=== PATIENT | male | born 1950 | race Caucasian/White ===

== ENCOUNTER 2016-05-29 08:02 | Day surgery (SDC) | payer OTHER, BC ==
[2016-04-25 08:56] VITALS: BMI 32.0
--- NOTE | 2016-04-25 09:43 | PAT Medication Instructions ---
Service Date Apr 25, 2016. Current Home Medication List Rapides (Rapides), Unknown Dose PO BID Amlodipine Besylate (Norvasc), 5 MG PO QAM Amoxicillin (Amoxil), 2,000 MG PO UD PRN for Prior to appointment Ascorbic Acid (Vitamin C), 500 MG PO QAM Cetirizine Hcl (Zyrtec), 10 MG PO QPM Dextromethorphan-Guaifenesin (Mucinex Dm), 1-2 TABLETS PO BID PRN for Cough Diphenhydramine Hcl (Benadryl Allergy), 1 TAB PO Q6 Fluticasone Propionate (Flonase Nasal [place]), 2 SPRAYS MELANIE QAM Lorazepam (Ativan), 0.5 MG PO Q12 PRN for PRN Losartan Potassium (Cozaar), 100 MG PO QAM Metoprolol Succinate (Toprol Xl), 100 MG PO QAM Multiple Vitamin (Multivitamin), 1 TABLET PO QAM Omeprazole (Prilosec), 20 MG PO QAM Medication Instructions For Your Scheduled Surgery - Hold the following medications as of 04/25/16: Rapides (Rapides), Unknown Dose PO BID - Hold the following medications the morning of surgery: Losartan Potassium (Cozaar), 100 MG PO QAM Multiple Vitamin (Multivitamin), 1 TABLET PO QAM Ascorbic Acid (Vitamin C), 500 MG PO QAM Diphenhydramine Hcl (Benadryl Allergy), 1 TAB PO Q6 Dextromethorphan-Guaifenesin (Mucinex Dm), 1-2 TABLETS PO BID PRN for Cough - Take the following medications the morning of surgery with a sip of water OTHERWISE NOTHING TO EAT OR DRINK AFTER MIDNIGHT: Metoprolol Succinate (Toprol Xl), 100 MG PO QAM Omeprazole (Prilosec), 20 MG PO QAM Amlodipine Besylate (Norvasc), 5 MG PO QAM Lorazepam (Ativan), 0.5 MG PO Q12 PRN - Take the following medications as scheduled the night before surgery: Lorazepam (Ativan), 0.5 MG PO Q12 PRN Cetirizine Hcl (Zyrtec), 10 MG PO QPM Diphenhydramine Hcl (Benadryl Allergy), 1 TAB PO Q6 Dextromethorphan-Guaifenesin (Mucinex Dm), 1-2 TABLETS PO BID PRN for Cough If you have any questions please call us at [phone] (Hermila Faulkner PA-C) or [phone] or [phone]
--- NOTE | 2016-04-25 10:00 | DIAGNOSTIC IMAGING REPORT ---
CHEST 2 VIEWS ROUTINE CLINICAL HISTORY: pat preoperative evaluation COMPARISON STUDY: No previous studies for comparison. FINDINGS: Minimal platelike atelectasis left base. Lungs otherwise are clear. Diaphragms smooth. IMPRESSION: Minimal platelike atelectasis left base. Otherwise negative study Electronically signed by: Sam Chery M.D. 04/25/2016 9:58 AM
[2016-04-25 10:37] LABS: BASO % 0.5 %; BASO ABS # 0.04 K/uL (0-0.2); COMPLETE YES; HEMATOCRIT 43.8 % (42-52); IG% 0.3 %; LYMPH % 22.9 %; LYMPH ABS # 1.76 K/uL (1.2-3.4); MEAN CELL VOLUME 91.3 fL (80-100); MEAN CORPUSCULAR HEMOGLOBIN 30.8 pg (25-34); MEAN CORPUSCULAR HGB CONC 33.8 g/dl (32-36); MEAN PLATELET VOLUME 8.9 fL (7.4-10.4); MONO % 9.9 %; NEUT % 57.4 %; PLATELET COUNT 241 K/uL (130-400); WHITE BLOOD COUNT 7.69 K/uL (4.8-10.8)
[2016-04-25 11:17] LABS: BUN/CREATININE RATIO 18.5 (10-20); CALCIUM 9.2 mg/dl (8.5-10.1); CREATININE 0.9 mg/dl (0.60-1.40); POTASSIUM 4.4 mmol/L (3.5-5.1)
[~2016-05-29] VITALS: Ht 185.4 cm; Wt 110.0 kg
[2016-05-29] VITALS (9 sets, daily range): BP systolic 110–144; BP diastolic 69–84; PULSE 62–89; TEMP 36.4–36.6; O2SAT 91–96; Ht 185.4 cm; Wt 110.0 kg
[~2016-05-29 08:02] MED LIST: ALFA250T PO; AMLO5TAB4 PO; AMOX500C3 PO; ASCO500T3 PO; CETI10TA10 PO; DEXT30TA7 PO; DIPH1TAB PO; FLNIN NAE; LACTATED RINGER'S 1000ML 1,000 ML IV SCH; LACTATED RINGER'S 1000ML IV SCH; LORA-741 PO; LOSA1TAB38 PO; METO100T7 PO; MULTTAB58 PO; OMEP20CA9 PO
[2016-05-29] MEDS ORDERED: NEOSTIGMINE METHYLSULFATE 5 MG/5 ML SYR ONE (08:59)
[2016-05-29] MEDS ORDERED: FENTANYL CITRATE INJ 50 MCG/1 ML 2 ML VIAL ONE ×2 (08:59→10:37)
[2016-05-29] MEDS ORDERED: EpHEDrine SULFATE INJ 50 MG/ML AMP ONE (08:59)
[2016-05-29] MEDS ORDERED: MIDAZOLAM HCL 1 MG/ML 2ML VIAL ONE (08:59)
[2016-05-29] MEDS ORDERED: ROCURONIUM BROMIDE 10 MG/ML 5 ML VIAL ONE (08:59)
[2016-05-29] MEDS ORDERED: DEXAMETHASONE SOD INJ 4 MG/ML VIAL ONE (08:59)
[2016-05-29] MEDS ORDERED: GLYCOPYRROLATE INJ 0.2 MG/ML VIAL ONE ×2 (08:59→10:56)
[2016-05-29] MEDS ORDERED: ONDANSETRON INJ 2 MG/ML 2 ML VIAL ONE (08:59)
[2016-05-29] MEDS ORDERED: PHENYLEPHRINE HCL INJ 10 MG/ML VIAL ONE (08:59)
[2016-05-29] MEDS ORDERED: SUCCINYLCHOLINE CHLORIDE 20 MG/ML 10 ML VIAL IV ONE (08:59)
[2016-05-29] MEDS ORDERED: PROPOFOL IV EMULSION 10 MG/ML 20 ML VIAL IV ONE (08:59)
[2016-05-29] MEDS ORDERED: LIDOCAINE HCL 2% 2 ML VIAL (20MG/ML) ONE (08:59)
[2016-05-29] MEDS ORDERED: LACTATED RINGER'S 1000ML 1,000 ML IV PRN (09:01)
[2016-05-29] MEDS ORDERED: ONDANSETRON INJ 2 MG/ML 2 ML VIAL IV PRN ×4 (09:15→17:30)
[2016-05-29] MEDS ORDERED: KETOROLAC TROMETHAMINE 15 MG/ML VIAL IV. PRN (09:15)
--- NOTE | 2016-05-29 09:32 | History & Physical Bridge Note ---
H&P Re-Evaluation Bridge Note: I have examined the patient, reviewed the History & Physical and in the interval since the performance of the History & Physical I have noted the following changes of clinical significance: No changes notedSO at bedside will discuss antibiotic coverage with anesthesia
[2016-05-29] MEDS ORDERED: OXYC-57 PO (09:38)
--- NOTE | 2016-05-29 09:42 | Discharge Instructions ---
Discharge Instructions Visit Reason for Visit: Cholelithiaisis Discharge Discharge Diagnosis / Problem: Laparoscopic cholecystectomy Discharge Goals Goal(s): Decrease discomfort Activity Recommendations Activity Limitations: per Instructions/Follow-up section Lifting Limitations: no more than 10 pounds Shower/Bathe: tomorrow Driving or Machine Use: resume 3 days after discharge Anesthesia . Post Anesthesia Instructions: If you have had General Anesthesia or IV Sedation: * Do not drive today. * Resume driving when surgeon permits. * Do not make important decisions or sign legal documents today. * Call surgeon for: 1. Temperature elevations greater than 101 degrees F. 2. Uncontrollable pain. 3. Excessive bleeding. 4. Persistent nausea and vomiting. 5. Medication intolerance (nausea, vomiting or rash). * For nausea and vomiting use only clear liquids such as: tea, soda, bouillon until nausea subsides, then gradually increase diet as tolerated. * If you have any concerns or questions, call your surgeon's office. If physician is unavailable and it is an emergency, call 911 or go to the nearest emergency room. . Instructions / Follow-Up Instructions / Follow-Up Dr. Lima next week, call [phone] if you do not already have an appt, tell them you have drain to be removed on Thursday Empty FLORENCIO 2-3 times daily, record total daily drainage Diet Recommendations Recommended Home Diet: no limitations Pending Studies Studies pending at discharge: no Medical Emergencies . Who to Call and When: Medical Emergencies: If at any time you feel your situation is an emergency, please call 911 immediately. . Non-Emergent Contact Non-Emergency issues call your: Surgeon Call Non-Emergent contact if: you have a fever, temperature is above 101.5, your pain is not controlled, wound has increased pain . . "Provider Documentation" section prepared by Kodak Braxton.
[2016-05-29] MEDS ORDERED: METOCLOPRAMIDE HCL INJ 5 MG/ML 2 ML VIAL ONE (09:49)
[2016-05-29] MEDS ORDERED: PHENYLEPHRINE 100MCG/ML 5ML SYR ONE (10:30)
[2016-05-29] MEDS ORDERED: EpHEDrine SULFATE 50MG/5ML SYR ONE (10:41)
[2016-05-29] MEDS ORDERED: CONRAY 60% 50 ML VIAL INSTIL ONE (10:52)
[2016-05-29] MEDS ORDERED: LIDOCAINE/EPINEPHRINE 1% 20 ML VIAL INJ ONE (10:52)
--- NOTE | 2016-05-29 11:12 | DIAGNOSTIC IMAGING REPORT ---
INTRAOPERATIVE RADIOGRAPHS CLINICAL HISTORY: Left scalp cholecystectomy. Fluoroscopy time: 5 seconds. FINDINGS: 4 spot fluoroscopic views of the right upper quadrant from an intraoperative cholangiogram are presented. The gallbladder is surgically absent. The common bile duct appears mildly dilated. A filling defect is seen in the distal common bile duct which may represent an obstructing gallstone. There is passage of contrast into the duodenum. The intrahepatic ducts appear normal in caliber. IMPRESSION: There is a filling defect identified in the distal common bile duct, likely represent choledocholithiasis. Correlation with the operative findings will be required. Electronically signed by: Efrain Velasquez M.D. 05/29/2016 11:11 AM Dictated Date/Time: 05/29/2016 11:10 AM
[2016-05-29] MEDS ORDERED: LACTATED RINGER'S 1000ML 1,000 ML IV SCH ×3 (11:22→17:20)
--- NOTE | 2016-05-29 11:28 | [facility] Post Operative Brief Note ---
Immediate Operative Summary Operative Date May 29, 2016. Pre-Operative Diagnosis Symptomatic cholelithiasis Post-Operative Diagnosis Same [facility] Procedure(s) Performed Laparoscopic Cholecystectomy with Cholangiogram Surgeon Dr Lima Multimedia Designer Surgeon(s) Kodak Braxton PA-C Estimated Blood Loss 5ml Findings [facility] Specimens A. Gallbladder Drains #19 cookie per stab
[2016-05-29] MEDS ORDERED: MoRPHine SULFATE 2 MG/ML CARP IV PRN ×3 (11:30→17:30)
[2016-05-29] MEDS ORDERED: OXYCODONE/ACETAMINOPHEN 5-325 TAB PO PRN ×4 (11:30→17:30)
[2016-05-29] MEDS: FENTANYL CITRATE INJ 50 MCG/1 ML 2 ML VIAL IV PRN ×4 (11:45→12:00)
[2016-05-29] MEDS ORDERED: KETOROLAC TROMETHAMINE 30 MG/ML VIAL ONE (12:04)
--- NOTE | 2016-05-29 12:16 | OPERATIVE REPORT ---
DATE OF OPERATION: 05/29/2016 SURGEON: Dr. Lima. WEB GRAPHIC DESIGNER: Morgan Braxton PA-C. PREOPERATIVE DIAGNOSES: Chronic cholecystitis, cholelithiasis. POSTOPERATIVE DIAGNOSES: Same. PROCEDURE: Laparoscopic cholecystectomy, intraoperative cholangiogram. SUMMARY: After induction of general endotracheal anesthesia, the patient's abdomen was prepped with Betadine scrub and solution and properly draped. We made a small transverse incision supraumbilically sufficient enough to place a Veress needle followed by CO2. We intentionally cut the intra-abdominal pressure to about 12-13 mmHg. We then placed a 5 mm trocar. Under direct visualization, we were able see the epigastric area. The omentum seems to be draped over the right lobe of the liver almost like suspicious for an acute cholecystitis, but once we were able to place a 5 mm epigastric, two 5 mm subcostal ports with preemptive analgesia 1% Xylocaine, as we moved the omentum down we could see that the gallbladder was thickened wall, but certainly not attached to any acute process. We placed a camera in subcostal port, visualized the umbilical opening. There were no adhesions identified. We controlled the trocar in the umbilical area by a 2-0 Vicryl on its wing. The patient then we dissected out towards the sarah hepatis, identified first the lymph node of [place] easily. We then went around the cystic duct which was quite small, placed a clip proximally and opening in the cystic duct was made. A #4 urethral catheter was transversing in the cholangiogram was obtained which showed flow into the duodenum. There was no obstruction. I could see what it looked like a duodenal diverticulum, it seems to be that the common channel. There was no real stricture in the distal common bile duct, we visualized the pancreatic duct. There was no obvious defects that I appreciated. At this point the cholangiocatheter was removed. The cystic duct was doubly clipped and divided. The artery similarly identified, doubly clipped and divided, most an anterior and posterior branch, then we took out the gallbladder in the antegrade fashion trying to leave as much as posterior peritoneum intact. We did have some issue with a slightly problem, we did stop the procedure once, let all the intraabdominal pneumoperitoneum even though it was only a 12. We even cut it down to about 10 and did pretty much most of the dissection from the gallbladder from underneath the liver under lower pressure. We were able then to elevate the gallbladder off the liver bed, a small opening in the gallbladder was made, no stones extravasation just bowel. The gallbladder was placed in an Endopouch and taken out intact through the epigastric port. Multiple stones were identified, some were larger, we need to open up the skin incision, was only about 5 mm trocar to about an 8, and we were able to remove all the stones and debris. The subhepatic suprahepatic area was then checked for hemostasis and appeared satisfactory. Some bleeders which were very minimal were controlled with electrocautery, but I did elect at this point to place a Juan F drain subhepatically, taken out lateral most trocar site, attached to skin edges with 2-0 silk. At this point individual trocars removed under direct visualization. No bleeding was identified. We then closed the epigastric trocar site with an 0 Vicryl [id number], the other ones were Monocryl and Dermabond for skin. THE PATIENT IS ALLERGIC TO ADHESIVES. The procedure was tolerated well by the patient. Estimated blood loss approximately 5 mL. The patient was taken to the recovery room in good condition. I attest to the content of the Intraoperative Record and any orders documented therein. Any exceptions are noted below. PATIENCE
--- NOTE | 2016-05-29 12:33 | Anesthesiology Progress Note ---
Anesthesia Post Op Note Date & Time May 29, 2016 at 12:34 Vital Signs Pain Intensity: 2 Vital Signs Past 12 Hours Date Time Temp Pulse Resp B/P Pulse Ox O2 Delivery O2 Flow Rate FiO2 05/29/16 12:19 36.3 74 20 116/75 93 Nasal Cannula 2 05/29/16 12:16 73 27 05/29/16 12:16 76 27 93 05/29/16 12:13 126/79 05/29/16 12:11 73 17 05/29/16 12:11 76 17 92 05/29/16 12:08 115/81 05/29/16 12:06 72 11 95 05/29/16 12:06 72 11 05/29/16 12:03 128/82 05/29/16 12:01 73 12 05/29/16 12:01 74 12 96 05/29/16 11:58 131/85 05/29/16 11:56 69 14 95 05/29/16 11:56 69 14 05/29/16 11:53 128/83 05/29/16 11:51 68 17 05/29/16 11:51 67 17 94 05/29/16 11:50 69 15 05/29/16 11:50 69 15 94 05/29/16 11:48 126/85 05/29/16 11:45 70 16 05/29/16 11:45 69 16 94 05/29/16 11:43 128/87 05/29/16 11:40 75 17 05/29/16 11:40 75 17 96 05/29/16 11:38 147/84 05/29/16 11:35 74 18 96 05/29/16 11:35 74 18 05/29/16 11:35 36.4 85 20 138/93 95 Mask 10 05/29/16 08:46 36.6 89 20 135/77 96 Room Air Notes Mental Status: alert / awake / arousable, participated in evaluation Pt Amnestic to Procedure: Yes Nausea / Vomiting: adequately controlled Pain: adequately controlled Airway Patency, RR, SpO2: stable & adequate BP & HR: stable & adequate Hydration State: stable & adequate Anesthetic Complications: no major complications apparent
[2016-05-29] MEDS ORDERED: LORAZEPAM 0.5 MG TAB PO PRN (17:15)
[2016-05-29] MEDS ORDERED: NURSING VERBAL MED ORDER ONE (17:30)
[2016-05-29] MEDS ORDERED: OXYCODONE/ACETAMINOPHEN 5-325 TAB ONE (17:31)
[2016-05-29] MEDS ORDERED: CETIRIZINE HCL 10 MG TAB PO SCH (21:00)
[2016-05-30] MEDS ORDERED: FLUTICASONE PROPIONATE NA SPR 16 GM BTL NAE SCH (09:00)
[2016-05-30] MEDS ORDERED: LOSARTAN POTASSIUM 50 MG TAB PO SCH (09:00)
[2016-05-30] MEDS ORDERED: NON-FORMULARY MEDICATION (Omeprazole (Prilosec) 20 MG) PO SCH (09:00)
[2016-05-30] MEDS ORDERED: METOPROLOL SUCC 50MG EXT REL TAB PO SCH (09:00)
[2016-05-30] MEDS ORDERED: AMLODIPINE BESYLATE 5 MG TAB PO SCH (09:00)
== END 2016-05-29 18:13 | disposition home or self-care (01) ==
LOC: C.ACU 08:02
PROVIDERS: ATTEND Surgery
DX: K80.10 Calculus of gallbladder with chronic cholecystitis without obstruction (principal); I10 Essential (primary) hypertension; Q87.40 Marfan syndrome, unspecified; L57.0 Actinic keratosis; D48.5 Neoplasm of uncertain behavior of skin; L71.9 Rosacea, unspecified; Z87.891 Personal history of nicotine dependence; Z82.49 Family history of ischemic heart disease and other diseases of the circulatory system; Z80.0 Family history of malignant neoplasm of digestive organs; Z80.1 Family history of malignant neoplasm of trachea, bronchus and lung

== ENCOUNTER → 2017-07-07 | Day surgery (SDC) | payer OTHER, BC ==
[2017-06-24 08:13] VITALS: BMI 31.0
[~2017-07-07] VITALS: Ht 185.4 cm; Wt 109.1 kg
[~2017-07-07] MED LIST changes: -ALFA250T PO; +ATROPINE SULFATE 0.1 MG/ML 5ML SYR IV PRN; +BUPIVACAINE/EPINEPHRINE 0.5% MPF 1:200,000 30 ML VIAL ONE; +CEFAZOLIN 2000MG IV PUSH 15 ML IV SCH; +CEFAZOLIN SOD 2000MG/15 ML IV PUSH IV ONE; -DIPH1TAB PO; +EpHEDrine SULFATE INJ 50 MG/ML AMP IV PRN; +EpHEDrine SULFATE INJ 50 MG/ML AMP ONE; +FENTANYL CITRATE INJ 50 MCG/1 ML 2 ML VIAL IV PRN; +FENTANYL CITRATE INJ 50 MCG/1 ML 2 ML VIAL ONE; -FLNIN NAE; +HYDR-5688 PO; -LACTATED RINGER'S 1000ML IV SCH; +LIDOCAINE HCL 2% 2 ML VIAL (20MG/ML) ONE; +MIDAZOLAM HCL 1 MG/ML 2ML VIAL ONE; +MoRPHine SULFATE 2 MG/ML CARP IV PRN; +ONDANSETRON INJ 2 MG/ML 2 ML VIAL IV PRN; +ONDANSETRON INJ 2 MG/ML 2 ML VIAL ONE; +PROPOFOL IV EMULSION 10 MG/ML 20 ML VIAL IV ONE
--- NOTE | 2017-07-07 10:10 | History and Physical ---
History & Physical Date Jul 07, 2017. Chief Complaint Patient presents as a 66-year-old white male with right knee pain and exam consistent with that of a torn medial meniscus is positive Serafin circumduction findings and MRI consistent of a complex tear posterior horn medial meniscus is been no response to conservative therapy presents for arthroscopic evaluation History of Present Illness The patient is a 66 year old male with complaints of Past Medical/Surgical History Medical Problems: (1) Gallstones (2) Heart disease (3) HTN (hypertension) (4) Kidney stones (5) Mitral valve prolapse Additional History Hepatic Disease: No Endocrine Disorder: No Kidney Disease: No Hypertension: Yes Heart Disease: No Bleeding Tendencies: No Infectious Diseases: No Allergies Coded Allergies: Adhesives (Verified Allergy, Unknown, RED/BLISTERS/ITCHY, 06/24/17) NO KNOWN DRUG ALLERGIES (Verified Allergy, Unknown, ., 06/24/17) Home Medications Scheduled Amlodipine Besylate (Norvasc), 5 MG PO QAM Ascorbic Acid (Vitamin C), 500 MG PO QAM Cetirizine Hcl (Zyrtec), 10 MG PO QPM Losartan Potassium (Cozaar), 100 MG PO QAM Metoprolol Succinate (Toprol Xl), 100 MG PO QAM Multiple Vitamin (Multivitamin), 1 TABLET PO QAM Omeprazole (Prilosec), 20 MG PO QAM Scheduled PRN Amoxicillin (Amoxil), 2,000 MG PO UD PRN for Prior to appointment Dextromethorphan-Guaifenesin (Mucinex Dm), 1-2 TABLETS PO BID PRN for Cough Lorazepam (Ativan), 0.5 MG PO Q12 PRN for ANXIETY Physical Examination Skin: warm/dry, no rash Eyes: normal inspection, EOMI, sclerae normal ENT: normal ENT inspection, pharynx normal Head: normocephalic, atraumatic Neck: supple, no adenopathy, trachea midline Respiratory/Chest: lungs clear, normal breath sounds, no respiratory distress Cardiovascular: regular rate, rhythm, no edema, no murmur Abdomen / GI: normal bowel sounds, non tender Back: normal inspection Extremities: normal inspection, normal range of motion, + pertinent finding ( torn medial meniscus) Neurologic/Psych: no motor/sensory deficits, alert, normal reflexes, oriented x 3 Addiitonal Comments: Patient presents with right knee pain small to moderate effusion ligamentous stability is excellent medial joint line pain and tenderness positive Serafin circumduction findings consistent with that of a torn medial meniscus Diagnosis Complex tear posterior horn medial meniscus right knee Plan of Treatment Plans for arthroscopic partial medial meniscectomy chondroplasty as necessary for pain management DVT prophylaxis antibiotics as necessary
--- NOTE | 2017-07-07 11:13 | History & Physical Bridge Note ---
H&P Re-Evaluation Bridge Note: I have examined the patient, reviewed the History & Physical and in the interval since the performance of the History & Physical I have noted the following changes of clinical significance: No changes noted
[2017-07-07 12:31] VITALS: BP 152/91; PULSE 87; TEMP 36.5; O2SAT 95; BMI 31.0
[2017-07-07 12:47] VITALS: Ht 185.4 cm; Wt 109.1 kg
--- NOTE | 2017-07-07 14:10 | Anesthesiology Progress Note ---
Anesthesia Progress Note Date of Service Jul 07, 2017. Progress Notes Arterial line placed in ASU II at 1345 in preparation for knee arthroscopy with Dr. Bellamy. Right wrist prepped with chlorhexidine and draped with sterile towels. Site infiltrated with 1 cc of 2% lidocaine. 20 G angiocath placed under sterile technique utilizing sterile gloves, surgical hats and masks. Catheter threaded using seldinger technique with return of pulsatile, bright red blood. Site covered with occlusive dressing and taped in place. Waveform consistent with correct arterial placement. After placement, fingers of right hand had normal perfusion. Patient tolerated procedure well without complications. Marielos Oscar MD, PhD\ Anesthesiology
--- NOTE | 2017-07-07 14:49 | Discharge Instructions ---
Discharge Instructions Date of Service Jul 07, 2017. Visit Reason for Visit: Right Knee Medial Meniscus Tear Discharge Discharge Diagnosis / Problem: Right Knee Medial Mensiscus Tear Discharge Goals Goal(s): Decrease discomfort, Improve function, Increase independence Activity Recommendations Activity Limitations: per Instructions/Follow-up section Weightbearing Status: Right weightbearing (as tolerated) Anesthesia . Post Anesthesia Instructions: If you have had General Anesthesia or IV Sedation: * Do not drive today. * Resume driving when surgeon permits. * Do not make important decisions or sign legal documents today. * Call surgeon for: 1. Temperature elevations greater than 101 degrees F. 2. Uncontrollable pain. 3. Excessive bleeding. 4. Persistent nausea and vomiting. 5. Medication intolerance (nausea, vomiting or rash). * For nausea and vomiting use only clear liquids such as: tea, soda, bouillon until nausea subsides, then gradually increase diet as tolerated. * If you have any concerns or questions, call your surgeon's office. If physician is unavailable and it is an emergency, call 911 or go to the nearest emergency room. . Instructions / Follow-Up Instructions / Follow-Up ACTIVITY RECOMMENDATIONS: * You may walk on the leg with or without crutches as comfort permits. * Bending of the knee should start at once. * Do not shower for 48 hours following surgery. SPECIAL CARE INSTRUCTIONS: * You may cleanse the skin adjacent to the small wounds with soap and water at the time of the first dressing change. * The application of an ice bag to the front and sides of the knee will decrease swelling and discomfort for the first 48 hours. * The small incisions may be sore and develop bruising. This bruising does not require any special care. SPECIAL PRECAUTIONS: * If you experience unusual pain unrelieved by prescriptions, temperature elevation (100 degrees F. or above) or progressive swelling or bleeding, you should contact our office at for further evaluation. * You may have been prescribed pain medication. If you experience nausea and/or fine skin rash, discontinue this medication and contact our office at for an alternate medication. DRESSING: * Dressing should be comfortable and absorb any leakage of fluid and/or blood. * The dressing may become moist or bloodstained. * Dressing may be removed 48 hours after surgery and bandaids placed over the small surgical incisions. If can be removed sooner if it becomes very soiled or loose. You can reuse the adi wrap to help with swelling. * Bandaids may be used over next several days as needed and can be discontinued when there is not further drainage from the wounds. FOLLOW UP VISIT: If appointment is not already scheduled: Please call [facility] to make a follow-up appointment for your surgery at . Diet Recommendations Recommended Home Diet: resume previous diet Pending Studies Studies pending at discharge: no Medical Emergencies . Who to Call and When: Medical Emergencies: If at any time you feel your situation is an emergency, please call 911 immediately. . Non-Emergent Contact Non-Emergency issues call your: Surgeon Call Non-Emergent contact if: temperature is above 101.5, your pain is not controlled, your pain is worsening, wound has increased drainage, wound has increased redness . . "Provider Documentation" section prepared by Darren Miguel. . [place] Drug Monitoring Program Search Results: patient reviewed within database, no issues identified
--- NOTE | 2017-07-07 14:51 | [facility] Post Operative Brief Note ---
Immediate Operative Summary Operative Date Jul 07, 2017. Pre-Operative Diagnosis Complex Tear Posterior Horn Medial Meniscus of the Right Knee Post-Operative Diagnosis Torn medial meniscus, right side. Partial lateral tear, right side. Procedure(s) Performed Right Knee Arthroscopy with Partial Medial Menisectomy, Partial Lateral Meniscectomy Surgeon Dr. Genaro Bellamy Emblem Cutter Surgeon(s) none Estimated Blood Loss 2mL Findings Consistent with Post-Op Diagnosis Specimens None, Per Surgeon Drains None Anesthesia Type General Complication(s) none Disposition Disposition: Recovery Room / PACU
--- NOTE | 2017-07-07 14:53 | [facility] Operative Report ---
Operative Report Operative Date Jul 07, 2017. Pre-Operative Diagnosis Complex Tear Posterior Horn Medial Meniscus of the Right Knee Post-Operative Diagnosis Torn medial meniscus, right side. Partial lateral tear, right side. Procedure(s) Performed Right Knee Arthroscopy with Partial Medial Menisectomy, Partial Lateral Meniscectomy Surgeon Dr. Genaro Bellamy Senior Warehouse Clerk Surgeon(s) none Estimated Blood Loss 2mL Findings Patient presents with a complex tear posterior horn medial meniscus complex tear posterior horn lateral meniscus no response to conservative therapy including injections anti-inflammatories and rest Specimens None, Per Surgeon Drains None Anesthesia Type General Complication(s) none Disposition Recovery Room / PACU Indications Patient presents with a complex tear posterior horn medial meniscus complex tear posterior horn lateral meniscus no response to conservative therapy including injections anti-inflammatories relative rest presents for knee arthroscopy Description of Procedure After proper prepping draping the right lower extremity medial lateral peripheral portals were made uteroscopic examination begin the region of the medial compartment revealed some complex tear of the posterior horn of the medial meniscus and a partial posterior horn medial meniscectomy was performed intraventricularly was visualized and probably to be intact lateral meniscus is improved appearance of complex tear of the posterior horn lateral meniscus with a partial posterior horn lateral segments performed patellofemoral joint was otherwise pristine there is some thickening of the region of the medial synovial plica which was excised performed a thorough evaluation medial lateral gutter suprapatellar pouch medial lateral compartments of documentaries remove the skin ports were closed with 4-0 nylon and sterile compressive dressings were placed prior to this injection of 20 cc of half percent Marcaine with epinephrine was injected sterile compressive dressing was placed based taken recovery in stable condition. I attest to the content of the Intraoperative Record and any orders documented therein. Any exceptions are noted below.
[2017-07-07 15:59] VITALS: BP 139/89; PULSE 65; TEMP 36.5; O2SAT 92
[2017-07-07 16:29] VITALS: BP 125/86; PULSE 54; TEMP 36.5; O2SAT 92
--- NOTE | 2017-07-07 16:34 | Anesthesiology Progress Note ---
Anesthesia Post Op Note Date & Time Jul 07, 2017 at 16:33 Vital Signs Pain Intensity: 0 Vital Signs Past 12 Hours Date Time Temp Pulse Resp B/P (MAP) Pulse Ox O2 Delivery O2 Flow Rate FiO2 07/07/17 15:59 36.5 65 20 139/89 92 Room Air 07/07/17 15:55 76 14 122/86 92 Room Air 07/07/17 15:45 36.1 77 13 120/94 94 Room Air 07/07/17 15:35 78 17 121/92 93 Room Air 07/07/17 15:25 81 17 137/96 98 Oxymask 10 07/07/17 15:15 80 13 131/99 95 Oxymask 10 07/07/17 15:06 36.1 77 14 119/95 93 Oxymask 10 07/07/17 12:31 36.5 87 20 152/91 (111) 95 Room Air Notes Mental Status: alert / awake / arousable, participated in evaluation Pt Amnestic to Procedure: Yes Nausea / Vomiting: adequately controlled Pain: adequately controlled Airway Patency, RR, SpO2: stable & adequate BP & HR: stable & adequate Hydration State: stable & adequate Anesthetic Complications: no major complications apparent
[2017-07-07 16:59] VITALS: BP 130/82; PULSE 68; TEMP 36.5; O2SAT 93
== END | disposition home or self-care (01) ==
LOC: C.ACU 11:43
PROVIDERS: ATTEND Orthopaedic Surgery
DX: S83.231A Complex tear of medial meniscus, current injury, right knee, initial encounter (principal); S83.271A Complex tear of lateral meniscus, current injury, right knee, initial encounter; X58.XXXA Exposure to other specified factors, initial encounter; K21.9 Gastro-esophageal reflux disease without esophagitis; I51.9 Heart disease, unspecified; I10 Essential (primary) hypertension; Z88.1 Allergy status to other antibiotic agents; Z68.31 Body mass index [BMI] 31.0-31.9, adult; E66.9 Obesity, unspecified; Z87.891 Personal history of nicotine dependence; Z98.890 Other specified postprocedural states; Z79.899 Other long term (current) drug therapy

== ENCOUNTER 2017-07-31 09:52 | Emergency (ER) | payer OTHER, BC ==
[~2017-07-31] VITALS: Ht 185.4 cm; Wt 110.8 kg
[~2017-07-31 09:52] MED LIST changes: -ATROPINE SULFATE 0.1 MG/ML 5ML SYR IV PRN; -BUPIVACAINE/EPINEPHRINE 0.5% MPF 1:200,000 30 ML VIAL ONE; -CEFAZOLIN 2000MG IV PUSH 15 ML IV SCH; -CEFAZOLIN SOD 2000MG/15 ML IV PUSH IV ONE; -EpHEDrine SULFATE INJ 50 MG/ML AMP IV PRN; -EpHEDrine SULFATE INJ 50 MG/ML AMP ONE; -FENTANYL CITRATE INJ 50 MCG/1 ML 2 ML VIAL IV PRN; -FENTANYL CITRATE INJ 50 MCG/1 ML 2 ML VIAL ONE; -LACTATED RINGER'S 1000ML 1,000 ML IV SCH; -LIDOCAINE HCL 2% 2 ML VIAL (20MG/ML) ONE; -MIDAZOLAM HCL 1 MG/ML 2ML VIAL ONE; -MoRPHine SULFATE 2 MG/ML CARP IV PRN; -ONDANSETRON INJ 2 MG/ML 2 ML VIAL IV PRN; -ONDANSETRON INJ 2 MG/ML 2 ML VIAL ONE; -PROPOFOL IV EMULSION 10 MG/ML 20 ML VIAL IV ONE
[2017-07-31 09:54] VITALS: TEMP 36.8; Ht 185.4 cm; Wt 110.8 kg
[2017-07-31] MEDS ORDERED: SODIUM CHLORIDE 0.9% 1000ML 1,000 ML IV STA (10:18)
[2017-07-31 10:30] LABS: BASO % 0.5 %; BASO ABS # 0.04 K/uL (0-0.2); EOS % 0.6 %; EOS ABS # 0.05 K/uL (0-0.5); HEMATOCRIT 43.6 % (42-52); HEMOGLOBIN 15.3 g/dL (14.0-18.0); IG# 0.02 K/uL (0.00-0.02); LYMPH % 12.5 %; LYMPH ABS # 0.99 K/uL (1.2-3.4); MEAN CELL VOLUME 90.5 fL (80-100); MEAN CORPUSCULAR HEMOGLOBIN 31.7 pg (25-34); MEAN CORPUSCULAR HGB CONC 35.1 g/dl (32-36); MEAN PLATELET VOLUME 8.9 fL (7.4-10.4); MONO % 9.9 %; MONO ABS # 0.78 K/uL (0.11-0.59); NEUT % 76.2 %; NEUT ABS # 6.02 K/uL (1.4-6.5); PLATELET COUNT 174 K/uL (130-400); RED CELL DISTRIBUTION WIDTH CV 13.2 % (11.5-14.5); RED CELL DISTRIBUTION WIDTH SD 43.8 fL (36.4-46.3)
[2017-07-31] MEDS ORDERED: SERT25TA PO (10:35)
[2017-07-31 10:41] LABS: INR 1.1 (0.9-1.1); PTT PATIENT 27.1 SECONDS (21.0-31.0)
--- NOTE | 2017-07-31 10:42 | DIAGNOSTIC IMAGING REPORT ---
CHEST ONE VIEW PORTABLE CLINICAL HISTORY: Shortness of breath, cough and hypotension. COMPARISON STUDY: Chest radiograph April 25, 2016. FINDINGS: Mild linear left basilar opacity suggestive of atelectasis. There is no pneumothorax or pleural effusion. Pulmonary vascularity is normal. Cardiomediastinal silhouette is stable. A few apparent left mid lung nodular densities are probably due to summation artifact. IMPRESSION: 1. No acute cardiopulmonary findings. 2. Two apparent left mid lung nodular densities which are likely due to summation artifact. However, these can be assessed on subsequent chest CT which has been ordered. Electronically signed by: Von Pearson M.D. 07/31/2017 10:41 AM Dictated Date/Time: 07/31/2017 10:40 AM
[2017-07-31 10:43] LABS: GLUCOSE 148 mg/dl (70-99)
[2017-07-31 10:44] LABS: ALBUMIN 3.4 gm/dl (3.4-5.0); ALKALINE PHOSPHATASE 125 U/L (45-117); ALT/SGPT 37 U/L (12-78); AST/SGOT 23 U/L (15-37); BLOOD UREA NITROGEN 12 mg/dl (7-18); CALCIUM 9.1 mg/dl (8.5-10.1); CARBON DIOXIDE 25 mmol/L (21-32); CREATININE 0.91 mg/dl (0.60-1.40); LIPASE 345 U/L (73-393); POTASSIUM 3.7 mmol/L (3.5-5.1); SODIUM 134 mmol/L (136-145); TOTAL PROTEIN 7.4 gm/dl (6.4-8.2)
[2017-07-31] MEDS ORDERED: OPTIRAY 320 IV PRN (10:45)
[2017-07-31 11:27] LABS: INFLUENZA B ANTIGEN Neg for Influ B (NEG)
--- NOTE | 2017-07-31 11:43 | DIAGNOSTIC IMAGING REPORT ---
CT ANGIOGRAM OF THE CHEST CLINICAL HISTORY: Atypical chest pain. Recent surgery. COMPARISON STUDY: Chest x-ray dated 07/31/2017. TECHNIQUE: Following the IV administration of 95 cc of Optiray 320, CT angiogram of the chest was performed from the upper abdomen to the thoracic inlet utilizing the pulmonary embolus protocol. Images are reviewed in the axial, sagittal, and coronal planes. 3-D MIPS images are created and assessed. IV contrast was administered without complication. A dose lowering technique was utilized adhering to the principles of ALARA. CT DOSE: 614.33 mGycm FINDINGS: Thyroid: Imaged portions of the thyroid gland are normal in size and attenuation. Thoracic aorta: The thoracic aorta is normal in caliber and demonstrates standard 3-vessel arch anatomy. No dissection is seen. Pulmonary vasculature: The pulmonary trunk is normal in caliber. There are no filling defects identified in main, lobar, or proximal segmental pulmonary branches to suggest pulmonary embolus. Evaluation of the peripheral branches is degraded by motion artifact. Heart: The heart is enlarged and without pericardial effusion. Lungs and pleural spaces: Evaluation of the lung parenchyma is degraded by motion artifact. Emphysematous change is identified. There is no airspace consolidation or pleural effusion. Dependent atelectasis is noted. The trachea and central airways are clear. Mediastinum: There are scattered subcentimeter mediastinal lymph nodes. These are not pathologically enlarged by size criteria. Janis: Prominent hilar nodes measure up to 10 mm in short axis. Axillae: There is no axillary lymphadenopathy. Upper abdomen: Partially visualized upper abdominal viscera is within normal limits. Skeletal structures: The skeletal structures are osteopenic. Degenerative change and mild hyperkyphosis are noted in the thoracic spine. There is a minimal superior endplate compression deformity of T3. No lytic or blastic bony lesions are seen. IMPRESSION: 1. Motion compromised examination. 2. There is no evidence of pulmonary embolus in the main, lobar, or proximal segmental pulmonary arteries. 3. Cardiomegaly and emphysema. 4. There is no airspace consolidation or pleural effusion. 5. Additional findings as above. Electronically signed by: Efrain Velasquez M.D. 07/31/2017 11:42 AM Dictated Date/Time: 07/31/2017 11:33 AM
[2017-07-31] MEDS ORDERED: OSEL75CA12 PO (13:09)
[2017-07-31] MEDS ORDERED: BENZ100C18 PO (13:22)
[2017-07-31 13:37] VITALS: BP 134/79; PULSE 90; O2SAT 92
--- NOTE | 2017-07-31 17:26 | EMERGENCY ROOM VISIT NOTE ---
History Report prepared by Christoph: Eduin Mackenzie Under the Supervision of: Dr. Richar Mata M.D. First contact with patient: 10:16 Chief Complaint: HYPOTENSION Stated Complaint: HYPOTENSION History of Present Illness The patient is a 66 year old male who presents to the Emergency Room with complaints of constant generalized weakness beginning today. He was seen by his PCP (Dr. Chamorro) this morning due to cold-like symptoms for the past two days. His cold-like symptoms primarily involve a productive cough. The patient states that he was found to have a low blood pressure by his PCP today. He notes that he had meniscus surgery about a month ago. He has a history of mitral valve prolapse. The patient is not on any blood thinning medication. He denies bloody stool, hematuria, abdominal pain, chest pain, or SOB. He has a history of hypertension and did not take his normal medication today. Source of History: patient Onset: Today Position: other (Generalized) Quality: other (weakness) Timing: constant Associated Symptoms: + cough (productive), No chest pain, No SOB, No abdominal pain, No hematochezia, No urinary symptoms (hematuria) Review of Systems See HPI for pertinent positives and negatives. A total of ten systems were reviewed and were otherwise negative. Past Medical & Surgical Medical Problems: (1) Gallstones (2) Heart disease (3) HTN (hypertension) (4) Kidney stones (5) Mitral valve prolapse Family History FHx: cancer FHx: gallbladder disease FHx: lung disease Hypertension Vericocele Social History Smoking Status: Former Smoker Alcohol Use: none Drug Use: none Marital Status: Housing Status: lives with family Occupation Status: employed Current/Historical Medications Scheduled Amlodipine Besylate (Norvasc), 5 MG PO QAM Ascorbic Acid (Vitamin C), 500 MG PO QAM Benzonatate (Tessalon Perles), 100 MG PO TID Cetirizine Hcl (Zyrtec), 10 MG PO QPM Losartan Potassium (Cozaar), 100 MG PO QAM Metoprolol Succinate (Toprol Xl), 100 MG PO QAM Multiple Vitamin (Multivitamin), 1 TABLET PO QAM Omeprazole (Prilosec), 20 MG PO QAM Oseltamivir (Tamiflu), 75 MG PO BID Sertraline (Zoloft), 25 MG PO DAILY Scheduled PRN Dextromethorphan-Guaifenesin (Mucinex Dm), 1-2 TABLETS PO BID PRN for Cough Lorazepam (Ativan), 0.5 MG PO Q12 PRN for ANXIETY Allergies Coded Allergies: Adhesives (Verified Allergy, Unknown, RED/BLISTERS/ITCHY, 07/31/17) NO KNOWN DRUG ALLERGIES (Verified Allergy, Unknown, ., 06/24/17) Physical Exam Vital Signs Date Time Temp Pulse Resp B/P (MAP) Pulse Ox O2 Delivery O2 Flow Rate FiO2 07/31/17 13:37 90 18 134/79 92 07/31/17 11:41 86 18 135/86 94 Room Air 07/31/17 10:11 86 07/31/17 09:54 36.8 90 18 121/63 92 Room Air Physical Exam Physical Exam GENERAL: He is oriented to person, place, and time. He appears well-developed and well-nourished. He does not appear distressed. ____ HENT: Exam performed. Head: Normocephalic and atraumatic. Right Ear: External ear normal. No mastoid tenderness. Left Ear: External ear normal. No mastoid tenderness. Mouth/Throat: The oropharynx is clear and moist. No trismus in the jaw. No dental abscesses or uvula swelling. No oropharyngeal exudate or tonsillar abscesses. ____ EYES: Conjunctivae and EOM are normal. Pupils are equal, round, and reactive to light. Right eye exhibits no discharge. Left eye exhibits no discharge. No scleral icterus. ____ NECK: Normal range of motion. Neck supple. No JVD present. No spinous process tenderness present. No carotid bruit present. No rigidity. No tracheal deviation and normal range of motion present. No Brudzinski's sign and no Kernig 's sign noted. ____ CV: Normal rate, regular rhythm, normal heart sounds and intact distal pulses. Blowing systolic murmur noted. There is no peripheral edema. Palpable radial pulses bue. Palpable DP and PT pulses bilaterally. __ PULM/CHEST: Effort normal with diminished breath sounds at the left base. No respiratory distress. No stridor. He has no wheezes. He has no rales. Chest Wall: He exhibits no tenderness. ____ ABD: The abdomen is soft. Bowel sounds are normal. He has no distension. No mass is present. There is no tenderness. There is no rebound, no guarding, no Ann's sign and no tenderness at McBurney's point. Rovsig negative MUSC/SKEL: Normal range of motion. There is no peripheral edema, tenderness or deformity. LYMPH: No cervical adenopathy. ____ NEURO: He is alert and oriented to person, place, and time. He has normal strength. No cranial nerve deficit or sensory deficit. Coordination and gait normal. GCS eye subscore is 4. GCS verbal subscore is 5. GCS motor subscore is 6. Cerebellar tests wnl. ____ SKIN: Skin is warm and dry. He is not diaphoretic. ____ PSYCH: He has a normal mood and affect. His behavior is normal. Judgment and thought content normal. ____ Medical Decision & Procedures ER Provider Diagnostic Interpretation: Radiology results as stated below per my review and radiologist interpretation: CT ANGIOGRAM OF THE CHEST FINDINGS: Thyroid: Imaged portions of the thyroid gland are normal in size and attenuation. Thoracic aorta: The thoracic aorta is normal in caliber and demonstrates standard 3-vessel arch anatomy. No dissection is seen. Pulmonary vasculature: The pulmonary trunk is normal in caliber. There are no filling defects identified in main, lobar, or proximal segmental pulmonary branches to suggest pulmonary embolus. Evaluation of the peripheral branches is degraded by motion artifact. Heart: The heart is enlarged and without pericardial effusion. Lungs and pleural spaces: Evaluation of the lung parenchyma is degraded by motion artifact. Emphysematous change is identified. There is no airspace consolidation or pleural effusion. Dependent atelectasis is noted. The trachea and central airways are clear. Mediastinum: There are scattered subcentimeter mediastinal lymph nodes. These are not pathologically enlarged by size criteria. Janis: Prominent hilar nodes measure up to 10 mm in short axis. Axillae: There is no axillary lymphadenopathy. Upper abdomen: Partially visualized upper abdominal viscera is within normal limits. Skeletal structures: The skeletal structures are osteopenic. Degenerative change and mild hyperkyphosis are noted in the thoracic spine. There is a minimal superior endplate compression deformity of T3. No lytic or blastic bony lesions are seen. IMPRESSION: 1. Motion compromised examination. 2. There is no evidence of pulmonary embolus in the main, lobar, or proximal segmental pulmonary arteries. 3. Cardiomegaly and emphysema. 4. There is no airspace consolidation or pleural effusion. 5. Additional findings as above. Electronically signed by: Efrain Velasquez M.D. 07/31/2017 11:42 AM CHEST ONE VIEW PORTABLE. FINDINGS: Mild linear left basilar opacity suggestive of atelectasis. There is no pneumothorax or pleural effusion. Pulmonary vascularity is normal. Cardiomediastinal silhouette is stable. A few apparent left mid lung nodular densities are probably due to summation artifact. IMPRESSION: 1. No acute cardiopulmonary findings. 2. Two apparent left mid lung nodular densities which are likely due to summation artifact. However, these can be assessed on subsequent chest CT which has been ordered. Electronically signed by: Von Pearson M.D. 07/31/2017 10:41 AM Laboratory Results 07/31/17 09:42 Red Blood Count 4.82, Mean Corpuscular Volume 90.5, Mean Corpuscular Hemoglobin 31.7, Mean Corpuscular Hemoglobin Concent 35.1, Mean Platelet Volume 8.9, Neutrophils (%) (Auto) 76.2, Lymphocytes (%) (Auto) 12.5, Monocytes (%) (Auto) 9.9, Eosinophils (%) (Auto) 0.6, Basophils (%) (Auto) 0.5, Neutrophils # (Auto) 6.02, Lymphocytes # (Auto) 0.99, Monocytes # (Auto) 0.78, Eosinophils # (Auto) 0.05, Basophils # (Auto) 0.04 07/31/17 09:42 Test 07/31/17 09:42 07/31/17 10:18 07/31/17 10:39 07/31/17 10:55 White Blood Count 7.90 K/uL (4.8-10.8) Red Blood Count 4.82 M/uL (4.7-6.1) Hemoglobin 15.3 g/dL (14.0-18.0) Hematocrit 43.6 % (42-52) Mean Corpuscular Volume 90.5 fL (80-100) Mean Corpuscular Hemoglobin 31.7 pg (25-34) Mean Corpuscular Hemoglobin Concent 35.1 g/dl (32-36) Platelet Count 174 K/uL (130-400) Mean Platelet Volume 8.9 fL (7.4-10.4) Neutrophils (%) (Auto) 76.2 % Lymphocytes (%) (Auto) 12.5 % Monocytes (%) (Auto) 9.9 % Eosinophils (%) (Auto) 0.6 % Basophils (%) (Auto) 0.5 % Neutrophils # (Auto) 6.02 K/uL (1.4-6.5) Lymphocytes # (Auto) 0.99 K/uL (1.2-3.4) Monocytes # (Auto) 0.78 K/uL (0.11-0.59) Eosinophils # (Auto) 0.05 K/uL (0-0.5) Basophils # (Auto) 0.04 K/uL (0-0.2) RDW Standard Deviation 43.8 fL (36.4-46.3) RDW Coefficient of Variation 13.2 % (11.5-14.5) Immature Granulocyte % (Auto) 0.3 % Immature Granulocyte # (Auto) 0.02 K/uL (0.00-0.02) Prothrombin Time 11.1 SECONDS (9.0-12.0) Prothromb Time International Ratio 1.1 (0.9-1.1) Activated Partial Thromboplast Time 27.1 SECONDS (21.0-31.0) Partial Thromboplastin Ratio 1.0 Anion Gap 8.0 mmol/L (3-11) Est Creatinine Clear Calc Drug Dose 102.8 ml/min Estimated GFR () 100.7 Estimated GFR (Non- 86.9 BUN/Creatinine Ratio 13.1 (10-20) Calcium Level 9.1 mg/dl (8.5-10.1) Magnesium Level 1.9 mg/dl (1.8-2.4) Total Bilirubin 0.8 mg/dl (0.2-1) Direct Bilirubin 0.2 mg/dl (0-0.2) Aspartate Amino Transf (AST/SGOT) 23 U/L (15-37) Alanine Aminotransferase (ALT/SGPT) 37 U/L (12-78) Alkaline Phosphatase 125 U/L (45-117) Troponin I < 0.015 ng/ml (0-0.045) Total Protein 7.4 gm/dl (6.4-8.2) Albumin 3.4 gm/dl (3.4-5.0) Lipase 345 U/L (73-393) Lactic Acid Level 1.4 mmol/L (0.4-2.0) Influenza Type A Antigen POS for Influ A (NEG) Influenza Type B Antigen Neg for Influ B (NEG) Laboratory results reviewed by me Medications Administered Medications (Trade) Dose Ordered Sig/Noy Route Start Time Stop Time Status Last Admin Dose Admin Sodium Chloride 1,000 ml @ 999 mls/hr Q1H1M STAT IV 07/31/17 10:18 07/31/17 11:18 DC 07/31/17 11:05 999 MLS/HR ECG Per My Interpretation Indication: weakness Rate (beats per minute): 86 Rhythm: sinus rhythm Findings: PVC, other (AZ, QRS, and QTC intervals within normal limits. No ST elevation or depression. ) ED Course 1017: The patient was evaluated in room A3. A complete history and physical exam was performed. 1018: Ordered Sodium Chloride 1000 ml @ 999 mls/hr IV. 1025: Conducted bedside COOK protocol which was negative. 1204: I reassessed and updated the patient on his test results. The patient is agreeable with the treatment plan. 1314: EKG CTA and labs within normal limits with the exception of influenza positive. Discharge with Tamiflu and Tessalon. DISCHARGE - Plan of care discussed with patient and questions answered. The patient was given both verbal and printed discharge instructions. The patient verbalized understanding and ability to comply. The patient is to seek outpatient follow up as noted in the discharge instructions. The patient verbalized understanding and ability to comply. The patient is discharged in stable condition. The patient was instructed to return for worsening symptoms. Medical Decision EKG CTA and labs within normal limits with the exception of influenza positive. Discharge with Tamiflu and Tessalon. DISCHARGE - Plan of care discussed with patient and questions answered. The patient was given both verbal and printed discharge instructions. The patient verbalized understanding and ability to comply. The patient is to seek outpatient follow up as noted in the discharge instructions. The patient verbalized understanding and ability to comply. The patient is discharged in stable condition. The patient was instructed to return for worsening symptoms. Medication Reconcilliation Current Medication List: was personally reviewed by me Blood Pressure Screening Patient's blood pressure: Normal blood pressure Blood pressure disposition: Did not require urgent referral Impression Primary Impression: Influenza Scribe Attestation The scribe's documentation has been prepared under my direction and personally reviewed by me in its entirety. I confirm that the note above accurately reflects all work, treatment, procedures, and medical decision making performed by me. The chart was completed utilizing [employer] Speech voice recognition software. Grammatical errors, random word insertions, pronoun errors, and incomplete sentences are an occasional consequence of this system due to software limitations, ambient noise, and hardware issues. Any formal questions or concerns about the content, text, or information contained within the body of this dictation should be directly addressed to the physician for clarification. Departure Information Dispostion Home / Self-Care Prescriptions Benzonatate (TESSALON PERLES) 100 Mg Cap 100 MG PO TID for Cough, #30 CAP Prov: Richar Mata M.D. 07/31/17 Oseltamivir (Tamiflu) 75 Mg Cap 75 MG PO BID for 5 Days, #10 CAP Prov: Richar Mata M.D. 07/31/17 Referrals Mansoor Chamorro D.O. (PCP) Forms HOME CARE DOCUMENTATION FORM, IMPORTANT VISIT INFORMATION, WORK / SCHOOL INSTRUCTIONS Patient Instructions ED Flu, [facility]
== END 2017-07-31 13:38 | disposition home or self-care (01) ==
LOC: C.EDA 09:52 → EDBD 09:52 → C.EDA 13:38
DX: J10.1 Influenza due to other identified influenza virus with other respiratory manifestations (principal); I51.9 Heart disease, unspecified; Z87.891 Personal history of nicotine dependence

== ENCOUNTER → 2017-11-17 | Outpatient (CLI) | payer OTHER, BC ==
[~2017-11-17] MED LIST changes: -AMOX500C3 PO; -HYDR-5688 PO; +SERT50TA PO
[2017-11-17 11:55] LABS: INR 3.2 (0.9-1.1)
--- NOTE | 2017-11-26 10:43 | CODING QUERY NO DIAGNOSIS ---
Valid Physician Order Needed A valid physician order must be submitted in order to properly bill for the service(s) provided, including date of service(s), valid diagnosis, and physician signature. If these tests are done on a recurring basis the original physician order must be submitted in order to code and bill for the service(s) provided. Please fax us the original, signed physician order so that we may expedite billing to [phone] DOS 11/17/17 (Attached form is missing the physician's signature and a diagnosis) * Prothrombin Time Profile Thank you Ankita Ellis [facility] Information Management
== END | disposition home or self-care (01) ==
LOC: C.LABSPEC 10:38
PROVIDERS: ATTEND Pharmacist Pharmacotherapy
DX: Z01.89 Encounter for other specified special examinations (principal)

== ENCOUNTER → 2017-11-20 | Outpatient (CLI) | payer OTHER, BC ==
--- NOTE | 2017-12-04 06:13 | CODING QUERY NO DIAGNOSIS ---
Valid Physician Order Needed A valid physician order must be submitted in order to properly bill for the service(s) provided, including date of service(s), valid diagnosis, and physician signature. If these tests are done on a recurring basis the original physician order must be submitted in order to code and bill for the service(s) provided. Please fax us the original, signed physician order so that we may expedite billing to [phone] DOS 11/20/17 * PTINR Thank you! [facility] Information Management
== END | disposition home or self-care (01) ==
LOC: C.LABSPEC 13:13
PROVIDERS: ATTEND Internal Medicine
DX: Z51.81 Encounter for therapeutic drug level monitoring (principal); Z79.01 Long term (current) use of anticoagulants

== ENCOUNTER → 2017-11-30 | Outpatient (CLI) | payer OTHER, BC ==
[2017-11-30 12:38] LABS: INR 1.6 (0.9-1.1)
== END | disposition home or self-care (01) ==
LOC: C.LABSPEC 11:43
PROVIDERS: ATTEND Internal Medicine
DX: Z12.5 Encounter for screening for malignant neoplasm of prostate (principal)

== ENCOUNTER → 2017-12-04 | Outpatient (CLI) | payer OTHER, BC ==
[2017-12-04 14:16] LABS: INR 1.8 (0.9-1.1)
--- NOTE | 2017-12-11 15:25 | CODING QUERY NO DIAGNOSIS ---
Valid Physician Order Needed A valid physician order must be submitted in order to properly bill for the service(s) provided, including date of service(s), valid diagnosis, and physician signature. If these tests are done on a recurring basis the original physician order must be submitted in order to code and bill for the service(s) provided. Please fax us the original, signed physician order so that we may expedite billing to [phone] DOS 12/04/17 * Prothrombin Time Thank you Ankita Ellis [facility] Information Management
== END | disposition home or self-care (01) ==
LOC: C.LABSPEC 13:28
PROVIDERS: ATTEND Internal Medicine
DX: Z01.89 Encounter for other specified special examinations (principal)